=== PATIENT | female | born 1940 | race Hispanic/Latino ===

== ENCOUNTER → 2025-03-05 | Outpatient (CLI) | payer MEDICARE ==
[2025-03-05] MEDS: REGADENOSON 0.4 MG/5 ML PF SYG IVP ONE (10:35)
== END | disposition home or self-care (01) ==
LOC: RAH 09:10
PROVIDERS: ATTEND Internal Medicine Cardiovascular Disease
DX: R06.02 Shortness of breath (principal)
CPT/HCPCS: 78452; 93017; J2785; A9500 ×2